=== PATIENT | female | born 1950 | race Caucasian/White ===

== ENCOUNTER → 2018-12-01 | Day surgery (SDC) | payer MEDICARE ==
[2018-11-29 15:16] LABS: BASOPHILS # (AUTO) 0.1 (0.0-0.1); BASOPHILS % 1.5 % (0.0-1.0); EOSINOPHILS # (AUTO) 0.2 (0.0-0.4); EOSINOPHILS % 3.1 % (0.0-6.0); HEMOGLOBIN 14.4 g/dL (12.0-16.0); LYMPHOCYTES # (AUTO) 2.3 (1.0-3.2); LYMPHOCYTES % 33.2 % (18.0-39.1); MEAN CORPUSCULAR HEMOGLOBIN 29.2 pg (28-32); MEAN CORPUSCULAR HGB CONC 32.7 g/dL (31-35); MEAN CORPUSCULAR VOLUME 89.2 fL (81-99); MONOCYTES # (AUTO) 0.6 (0.2-0.8); MONOCYTES % 8.6 % (4.4-11.3); NEUTROPHILS # (AUTO) 3.6 (2.1-6.9); NEUTROPHILS % 53.5 % (38.7-80.0); PLATELET COUNT 276 x10e3/uL (140-360); RED BLOOD COUNT 4.93 x10e6/uL (3.6-5.1); RED CELL DISTRIBUTION WIDTH 13.3 % (11.7-14.4)
[~2018-12-01] MED LIST: CINNAMON500 MG PO; CO Q-10100 MG PO; FENTANYL CITRATE/PF 100MCG/2 ML INJ ONE; LEVOTHYROXINE50 MCG PO; MIDAZOLAM HCL 2 MG/2 ML VIAL ONE; MUCINEX PO; MULTI-VITAMIN1 EACH PO; OMEPRAZOLE40 MG PO; PROPOFOL IV EMULSION 10 MG/ML 20 ML VIAL ONE; SIMVASTATIN40 MG PO; SUPER B-50 COM1 EACH PO; VENLAFAXINE HCL75 MG PO; VIT A PO; VIT D PO
--- OUTSIDE RECORDS SUMMARY | 2018-12-01 05:31 | XMS REPORT | Clinical Summary ---
Author Author [facility] Organization [facility] Address Unknown Phone Unavailable Care Team Providers Care Link Trainer Maintenance Man Name Role Phone PCP Unavailable Allergies Not on File Current Medications Not on file Active Problems Problem Noted Date Impaired mobility and ADLs 05/06/2018 Status post total replacement of right hip 05/06/2018 H/O total hip arthroplasty, left 05/06/2018 Encounters Date Type Specialty Care Team Description 08/16/2018 Therapy Physical Therapy Atilio Weston PT Impaired mobility and ADLs; Status post total replacement of right hip; H/O total hip arthroplasty, left 08/04/2018 Therapy Physical Therapy Rafael Talbot, PT Impaired mobility and ADLs; Status post total replacement of right hip; H/O total hip arthroplasty, left 07/21/2018 Therapy Physical Therapy Rafael Talbot, PT Impaired mobility and ADLs; Status post total replacement of right hip; H/O total hip arthroplasty, left 07/14/2018 Therapy Physical Therapy Atilio Weston PT Impaired mobility and ADLs; Status post total replacement of right hip; H/O total hip arthroplasty, left 07/06/2018 Therapy Physical Therapy Rafael Talbot, PT Impaired mobility and ADLs; Status post total replacement of right hip; H/O total hip arthroplasty, left 07/02/2018 Therapy Physical Therapy Atilio Weston PT Impaired mobility and ADLs; Status post total replacement of right hip; H/O total hip arthroplasty, left 06/29/2018 Therapy Physical Therapy Atilio Weston, PT Impaired mobility and ADLs; Status post total replacement of right hip; H/O total hip arthroplasty, left 06/24/2018 Therapy Physical Therapy Rafael Talbot, PT Impaired mobility and ADLs; Status post total replacement of right hip; H/O total hip arthroplasty, left 06/21/2018 Therapy Physical Therapy Rafael Talbot, PT Impaired mobility and ADLs; Status post total replacement of right hip; H/O total hip arthroplasty, left 06/18/2018 Therapy Physical Therapy Atilio Weston, PT Impaired mobility and ADLs; Status post total replacement of right hip; H/O total hip arthroplasty, left 06/15/2018 Therapy Physical Therapy Atilio Weston, PT Impaired mobility and ADLs; Status post total replacement of right hip; H/O total hip arthroplasty, left 06/11/2018 Therapy Physical Therapy Rafael Talbot, PT Impaired mobility and ADLs; Status post total replacement of right hip; H/O total hip arthroplasty, left 06/04/2018 Therapy Physical Therapy Atilio Weston, PT Impaired mobility and ADLs; Status post total replacement of right hip; H/O total hip arthroplasty, left 06/01/2018 Therapy Physical Therapy Atilio Weston, PT Impaired mobility and ADLs; Status post total replacement of right hip; H/O total hip arthroplasty, left 05/27/2018 Therapy Physical Therapy Rafael Talbot, PT Impaired mobility and ADLs; Status post total replacement of right hip; H/O total hip arthroplasty, left 05/25/2018 Therapy Physical Therapy Rafael Talbot, PT Impaired mobility and ADLs; Status post total replacement of right hip; H/O total hip arthroplasty, left 05/20/2018 Therapy Physical Therapy Atilio Weston, PT Impaired mobility and ADLs (Primary Dx); Status post total replacement of right hip; H/O total hip arthroplasty, left 05/18/2018 Therapy Physical Therapy Atilio Weston, PT Impaired mobility and ADLs; Status post total replacement of right hip; H/O total hip arthroplasty, left 05/14/2018 Therapy Physical Therapy Rafael Talbot, PT Impaired mobility and ADLs; Status post total replacement of right hip; H/O total hip arthroplasty, left 05/10/2018 Therapy Physical Therapy Rfaael Talbot, PT Impaired mobility and ADLs; Status post total replacement of right hip; H/O total hip arthroplasty, left 05/06/2018 Therapy Physical Therapy Vik Israel, PT Status post total replacement of right hip (Primary Dx); Impaired mobility and ADLs; H/O total hip arthroplasty, left after 09/19/2017 Social History Tobacco Use Types Packs/Day Years Used Date Never Assessed Sex Assigned at Date Recorded Not on file Last Filed Vital Signs Not on file Plan of Treatment Health Maintenance Due Date Last Done Comments Breast Cancer Scrn 1991 (Yearly) Colorectal Cancer Scrn 2001 Annual (FIT/FOBT) Age 50 to 75 IMM Pneumococcal Age 65 2016 and Up IMM Influenza Seasonal 08/02/2018Aug to December (>/=19 yrs) Results Not on fileafter 09/19/2017
--- OUTSIDE RECORDS SUMMARY | 2018-12-01 05:31 | XMS REPORT | Clinical Summary ---
Author Author [facility] Organization [facility] Address Unknown Phone Unavailable Care Team Providers Care Braider Operator Name Role Phone PCP Unavailable Allergies Not on File Current Medications Not on file Active Problems Problem Noted Date Impaired mobility and ADLs 05/06/2018 Status post total replacement of right hip 05/06/2018 H/O total hip arthroplasty, left 05/06/2018 Encounters Date Type Specialty Care Team Description 08/04/2018 Therapy Physical Therapy Rafael Talbot, PT Impaired mobility and ADLs; Status post total replacement of right hip; H/O total hip arthroplasty, left 07/21/2018 Therapy Physical Therapy Rafael Talbot, PT Impaired mobility and ADLs; Status post total replacement of right hip; H/O total hip arthroplasty, left 07/14/2018 Therapy Physical Therapy Atilio Weston, PT Impaired mobility and ADLs; Status post total replacement of right hip; H/O total hip arthroplasty, left 07/06/2018 Therapy Physical Therapy Rafael Talbot PT Impaired mobility and ADLs; Status post total replacement of right hip; H/O total hip arthroplasty, left 07/02/2018 Therapy Physical Therapy Atilio Weston PT Impaired mobility and ADLs; Status post total replacement of right hip; H/O total hip arthroplasty, left 06/29/2018 Therapy Physical Therapy Atilio Weston PT Impaired [...] hip arthroplasty, left 05/10/2018 Therapy Physical Therapy Rafael Talbot, PT Impaired mobility and ADLs; Status post total replacement of right hip; H/O total hip arthroplasty, left 05/06/2018 Therapy Physical Therapy Vik Israel, PT Status post total replacement of right hip (Primary Dx); Impaired mobility and ADLs; H/O total hip arthroplasty, left after 08/09/2017 Social History Tobacco Use Types Packs/Day Years Used Date Never Assessed Sex Assigned at Date Recorded Not on file Last Filed Vital Signs Not on file Plan of Treatment Date Type Specialty Care Team Description 08/13/2018 Therapy Physical Therapy Atilio Weston, PT Health Maintenance Due Date Last Done Comments Breast Cancer Scrn 1991 (Yearly) Colorectal Cancer Scrn 2001 Annual (FIT/FOBT) Age 50 to 75 IMM Pneumococcal Age 66 2016 and Up IMM Influenza Seasonal 08/02/2018Aug to December (>/=19 yrs) Results Not on fileafter 08/09/2017
--- OUTSIDE RECORDS SUMMARY | 2018-12-01 05:31 | XMS REPORT | Continuity of Care Document ---
Author Author [facility] Address Unknown Phone Unavailable Problems Problem Status Onset Date Classification Date Reported Comments Source Impaired mobility and ADLs Active 05/06/2018 Problem 09/20/2018 [facility] Status post total replacement of right hip Active 05/06/2018 Problem 09/20/2018 [facility] H/O total hip arthroplasty, left Active 05/06/2018 Problem 09/20/2018 [facility] 272.0/780.79 Active [facility] Medications Medication Details Route Status Patient Instructions Ordering Provider Order Date Source Allergies, Adverse Reactions, Alerts Substance Category Reaction Severity Reaction type Status Date Reported Comments Source Immunizations Immunization Date Given Site Status Last Updated Comments Source Results Order Name Results Value Reference Range Date Interpretation Comments Source Vital Signs Vital Sign Value Date Comments Source Encounters Location Location Details Encounter Type Encounter Number Reason For Visit Attending Provider ADM Date DC Date Status Source [facility] Outpatient [id number] 272.0/780.79 [facility] 11/10/2011 11/10/2011 Active [facility] Physical Therapy [facility] [id number] Impaired mobility and ADLs 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, left Ke Medrano PT 05/06/2018 05/06/2018 [facility] Physical Therapy [facility] [id number] Impaired mobility and ADLs 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, left Rafael Talbot PT 05/10/2018 05/10/2018 [facility] Physical Therapy [facility] [id number] Impaired mobility and ADLs 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, left Rafael Talbot PT 05/14/2018 05/14/2018 [facility] Physical Therapy [facility] [id number] Impaired mobility and ADLs 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, left Atilio Weston PT 05/18/2018 05/18/2018 [facility] Physical Therapy [facility] [id number] Impaired mobility and ADLs 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, left Atilio Weston PT 05/20/2018 05/20/2018 [facility] [id number] Impaired mobility and ADLs 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, left Rafael Talbot PT 05/25/2018 05/25/2018 [facility] Physical Therapy [facility] Therapy [id number] Impaired mobility and ADLs 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, left Rafael Talbot PT 05/27/2018 05/27/2018 [facility] [id number] Impaired mobility and ADLs 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, left Atilio Weston PT 06/01/2018 06/01/2018 [facility] Physical Therapy [facility] Therapy [id number] Impaired mobility and ADLs 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, left Atilio Weston PT 06/04/2018 06/04/2018 [facility] Physical Therapy [facility] Therapy [id number] Impaired mobility and ADLs 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, left Rafael Talbot PT 06/11/2018 06/11/2018 [facility] Physical Therapy [facility] Therapy [id number] Impaired mobility and ADLs 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, left Atilio Weston PT 06/15/2018 06/15/2018 [facility] [id number] Impaired mobility and ADLs 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, left Atilio Weston PT 06/18/2018 06/18/2018 [facility] Physical Therapy [facility] Therapy [id number] Impaired mobility and ADLs 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, left Rafael Talbot PT 06/21/2018 06/21/2018 [facility] [id number] Impaired mobility and ADLs 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, left Rafael Talbot PT 06/24/2018 06/24/2018 [facility] [id number] Impaired mobility and ADLs 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, left Atilio Weston PT 06/29/2018 06/29/2018 [facility] [id number] Impaired mobility and ADLs 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, left Atilio Weston PT 07/02/2018 07/02/2018 [facility] Physical Therapy [facility] Therapy [id number] Impaired mobility and ADLs 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, left Rafael Garciavins PT 07/06/2018 07/06/2018 [facility] Physical Therapy [facility] Therapy [id number] Impaired mobility and ADLs 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, left Atilio Weston PT 07/14/2018 07/14/2018 [facility] Physical Therapy [facility] Therapy [id number] Impaired mobility and ADLs 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
--- OUTSIDE RECORDS SUMMARY | 2018-12-01 05:31 | XMS REPORT ---
Author Author [facility] Address Unknown Phone Unavailable Care Team Providers Care Plant Clerk Name Role Phone Unavailable Unavailable Problems This patient has no known problems. Allergies, Adverse Reactions, Alerts This patient has no known allergies or adverse reactions. Medications This patient has no known medications. Encounters Start Date/Time End Date/Time Encounter Type Admission Type Attending [facility] Facility Care Department Encounter ID 2018-08-16 07:39:28 2018-08-16 07:39:28 Outpatient [facility] [id number] 2018-08-13 00:00:00 2018-08-13 00:00:00 Outpatient [facility] [id number] 2018-08-04 08:46:57 2018-08-04 08:46:57 Outpatient [facility] [id number] 2018-07-28 00:00:00 2018-07-28 00:00:00 Outpatient [facility] [id number] 2018-07-28 00:00:00 2018-07-28 00:00:00 Outpatient [facility] [id number] 2018-07-21 08:32:58 2018-07-21 08:32:58 Outpatient [facility] [id number] 2018-07-16 00:00:00 2018-07-16 00:00:00 Outpatient [facility] [id number] 2018-07-14 07:58:30 2018-07-14 07:58:30 Outpatient [facility] [id number] 2018-07-06 09:02:39 2018-07-06 09:02:39 Outpatient [facility] [id number] 2018-07-02 07:29:00 2018-07-02 07:29:00 Outpatient [facility] [id number] 2018-06-29 07:26:40 2018-06-29 07:26:40 Outpatient [facility] [id number] 2018-06-24 06:55:56 2018-06-24 06:55:56 Outpatient [facility] [id number] 2018-06-21 10:54:33 2018-06-21 10:54:33 Outpatient [facility] [id number] 2018-06-18 07:34:18 2018-06-18 07:34:18 Outpatient [facility] [id number] 2018-06-15 07:28:35 2018-06-15 07:28:35 Outpatient [facility] [id number] 2018-06-11 07:01:06 2018-06-11 07:01:06 Outpatient [facility] [id number] 2018-06-04 07:34:29 2018-06-04 07:34:29 Outpatient [facility] [id number] 2018-06-03 00:00:00 2018-06-03 00:00:00 Outpatient [facility] [id number] 2018-06-01 07:11:03 2018-06-01 07:11:03 Outpatient [facility] [id number] 2018-05-27 07:29:58 2018-05-27 07:29:58 Outpatient [facility] [id number] 2018-05-25 07:13:17 2018-05-25 07:13:17 Outpatient [facility] [id number] 2018-05-20 07:15:09 2018-05-20 07:15:09 Outpatient [facility] [id number] 2018-05-18 07:25:27 2018-05-18 07:25:27 Outpatient [facility] [id number] 2018-05-14 07:13:06 2018-05-14 07:13:06 Outpatient [facility] [id number] 2018-05-10 06:57:56 2018-05-10 06:57:56 Outpatient [facility] [id number] 2018-05-06 07:18:05 2018-05-06 07:18:05 Outpatient [facility] [id number]
--- OUTSIDE RECORDS SUMMARY | 2018-12-01 05:31 | XMS REPORT | Clinical Summary ---
Author Author [facility] Organization [facility] Address Unknown Phone Unavailable Care Team Providers Care Railroad Operating Engineer Name Role Phone PCP Unavailable Allergies Not on File Current Medications Not on file Active Problems Problem Noted Date Impaired mobility and ADLs 05/06/2018 Status post total replacement of right hip 05/06/2018 H/O total hip arthroplasty, left 05/06/2018 Encounters Date Type Specialty Care Team Description 08/04/2018 Therapy Physical Therapy Rafael Talbot, PT Arrived 07/21/2018 Therapy Physical Therapy Rafael Talbot, PT [...] ADLs; H/O total hip arthroplasty, left after 08/03/2017 Social History Tobacco Use Types Packs/Day Years [...] December (>/=19 yrs) Results Not on fileafter 08/03/2017
--- OUTSIDE RECORDS SUMMARY | 2018-12-01 05:31 | XMS REPORT | Clinical Summary ---
Author Author [facility] Organization [facility] Address Unknown Phone Unavailable Care Team Providers Care Financial Aids Officer Name Role Phone PCP Unavailable Allergies Not on File Current Medications Not on file Active Problems Problem Noted Date Impaired mobility and ADLs 05/06/2018 Status post total replacement of right hip 05/06/2018 H/O total hip arthroplasty, left 05/06/2018 Encounters Date Type Specialty Care Team Description 07/21/2018 Therapy Physical Therapy Rafael Talbot, PT Arrived 07/14/2018 Therapy Physical Therapy Atilio Weston, PT [...] arthroplasty, left 06/24/2018 Therapy Physical Therapy Rafael Talbot PT Impaired mobility and ADLs; Status post total replacement of right hip; H/O total hip arthroplasty, left 06/21/2018 Therapy Physical Therapy Rafael Talbot, PT Impaired mobility and ADLs; Status post total replacement of right hip; H/O total hip arthroplasty, left 06/18/2018 Therapy Physical Therapy Atilio Weston PT Impaired [...] ADLs; H/O total hip arthroplasty, left after 07/20/2017 Social History Tobacco Use Types Packs/Day Years Used Date Never Assessed Sex Assigned at Date Recorded Not on file Last Filed Vital Signs Not on file Plan of Treatment Date Type Specialty Care Team Description 07/28/2018 Therapy Physical Therapy Atilio Weston, PT 08/04/2018 Therapy Physical Therapy Rafael Talbot, PT Health Maintenance Due Date Last Done Comments Breast Cancer Scrn 1991 (Yearly) Colorectal Cancer Scrn 2001 Annual (FIT/FOBT) Age 50 to 75 IMM Pneumococcal Age 66 2016 and Up IMM Influenza Seasonal 08/02/2018Aug to December (>/=19 yrs) Results Not on fileafter 07/20/2017
--- OUTSIDE RECORDS SUMMARY | 2018-12-01 05:31 | XMS REPORT | Clinical Summary ---
Author Author [facility] Organization [facility] Address Unknown Phone Unavailable Care Team Providers Care Child Care Development Specialist Name Role Phone PCP Unavailable Allergies Not on File Medications Not on file Active Problems Problem Noted Date Impaired mobility and ADLs 05/06/2018 Status post total replacement of right hip 05/06/2018 H/O total hip arthroplasty, left 05/06/2018 Encounters Care Team Description Date Type Specialty Atilio Weston, PT Impaired mobility and ADLs; Status post total replacement of right hip; H/O total hip arthroplasty, left 08/16/2018 Therapy Physical Therapy Rafael Talbot, PT Impaired mobility and ADLs; Status post total replacement of right hip; H/O total hip arthroplasty, left 08/04/2018 Therapy Physical Therapy Rafael Talbot, PT Impaired mobility and ADLs; Status post total replacement of right hip; H/O total hip arthroplasty, left 07/21/2018 Therapy Physical Therapy Atilio Weston, PT Impaired mobility and ADLs; Status post total replacement of right hip; H/O total hip arthroplasty, left 07/14/2018 Therapy Physical Therapy Rafael Talbot, PT Impaired mobility and ADLs; Status post total replacement of right hip; H/O total hip arthroplasty, left 07/06/2018 Therapy Physical Therapy Atilio Weston PT Impaired mobility and ADLs; Status post total replacement of right hip; H/O total hip arthroplasty, left 07/02/2018 Therapy Physical Therapy Atilio Weston, PT Impaired mobility and ADLs; Status post total replacement of right hip; H/O total hip arthroplasty, left 06/29/2018 Therapy Physical Therapy Rafael Talbot, PT Impaired mobility and ADLs; Status post total replacement of right hip; H/O total hip arthroplasty, left 06/24/2018 Therapy Physical Therapy Rafael Talbot, PT Impaired mobility and ADLs; Status post total replacement of right hip; H/O total hip arthroplasty, left 06/21/2018 Therapy Physical Therapy Atilio Weston, PT Impaired mobility and ADLs; Status post total replacement of right hip; H/O total hip arthroplasty, left 06/18/2018 Therapy Physical Therapy Atilio Weston, PT Impaired mobility and ADLs; Status post total replacement of right hip; H/O total hip arthroplasty, left 06/15/2018 Therapy Physical Therapy Rafael Talbot, PT Impaired mobility and ADLs; Status post total replacement of right hip; H/O total hip arthroplasty, left 06/11/2018 Therapy Physical Therapy Atilio Weston, PT Impaired mobility and ADLs; Status post total replacement of right hip; H/O total hip arthroplasty, left 06/04/2018 Therapy Physical Therapy Atilio Weston, PT Impaired mobility and ADLs; Status post total replacement of right hip; H/O total hip arthroplasty, left 06/01/2018 Therapy Physical Therapy Rafael Talbot, PT Impaired mobility and ADLs; Status post total replacement of right hip; H/O total hip arthroplasty, left 05/27/2018 Therapy Physical Therapy Rafael Talbot, PT Impaired mobility and ADLs; Status post total replacement of right hip; H/O total hip arthroplasty, left 05/25/2018 Therapy Physical Therapy Atilio eWston, PT Impaired mobility and ADLs (Primary Dx); Status post total replacement of right hip; H/O total hip arthroplasty, left 05/20/2018 Therapy Physical Therapy Atilio Weston, PT Impaired mobility and ADLs; Status post total replacement of right hip; H/O total hip arthroplasty, left 05/18/2018 Therapy Physical Therapy Rafael Talbot, PT Impaired mobility and ADLs; Status post total replacement of right hip; H/O total hip arthroplasty, left 05/14/2018 Therapy Physical Therapy Rafael Talbot, PT Impaired mobility and ADLs; Status post total replacement of right hip; H/O total hip arthroplasty, left 05/10/2018 Therapy Physical Therapy Vik Israel, PT Status post total replacement of right hip (Primary Dx); Impaired mobility and ADLs; H/O total hip arthroplasty, left 05/06/2018 Therapy Physical Therapy after 11/30/2017 Social History Date Tobacco Use Types Packs/Day Years Used Never Assessed Sex Assigned at Date Recorded Not on file Industry Job Start Date Occupation Not on file Not on file Not on file Travel End Travel History Travel Start No recent travel history available. Last Filed Vital Signs Not on file Plan of Treatment Health Maintenance Due Date Last Done Comments Breast Cancer Scrn 1991 (Yearly) Colorectal Cancer Scrn 2001 Annual (FIT/FOBT) Age 50 to 75 IMM Pneumococcal Age 66 2016 and Up IMM Influenza Seasonal 08/02/2018Aug to December (>/=19 yrs) Results Not on fileafter 11/30/2017 Insurance Type Payer Benefit Subscriber ID Effective Phone Address Plan / Dates Group MEDICARE MEDICARE xxxxxxxxxx 2017-P [id number] [place] [address] AETNA AETNA xxxxxxxxxx 2015-P [phone] [id number] [place] [address]
--- OUTSIDE RECORDS SUMMARY | 2018-12-01 05:31 | XMS REPORT | Clinical Summary ---
Author Author [facility] Organization [facility] Address Unknown Phone Unavailable Care Team Providers Care Medical Imaging Technologist Name Role Phone PCP Unavailable Allergies Not on File Current Medications Not on file Active Problems Not on file Social History Tobacco Use Types Packs/Day Years Used Date Never Assessed Sex Assigned at Date Recorded Not on file Last Filed Vital Signs Not on file Plan of Treatment Date Type Specialty Care Team Description 05/06/2018 Therapy Physical Therapy Vik Israel, PT Health Maintenance Due Date Last Done Comments BREAST CANCER SCRN 1991 (YEARLY) COLORECTAL CANCER SCRN 2001 ANNUAL (FIT/FOBT) AGE 50 TO 75 IMM PNEUMOCOCCAL AGE 65 2016 AND UP Results Not on fileafter 05/05/2017
[2018-12-01 08:15] VITALS: BP 139/98
== END | disposition home or self-care (01) ==
LOC: OR 05:23
PROVIDERS: ATTEND Internal Medicine Gastroenterology
DX: Z12.11 Encounter for screening for malignant neoplasm of colon (principal); D12.0 Benign neoplasm of cecum; D12.3 Benign neoplasm of transverse colon; K29.70 Gastritis, unspecified, without bleeding; K21.9 Gastro-esophageal reflux disease without esophagitis; K64.8 Other hemorrhoids; Z71.3 Dietary counseling and surveillance; G47.33 Obstructive sleep apnea (adult) (pediatric); E66.01 Morbid (severe) obesity due to excess calories; Z01.810 Encounter for preprocedural cardiovascular examination; Z01.812 Encounter for preprocedural laboratory examination; Z68.41 Body mass index [BMI] 40.0-44.9, adult; Z96.649 Presence of unspecified artificial hip joint; Z80.0 Family history of malignant neoplasm of digestive organs
CPT/HCPCS: 36415; 43239; 45380; 85025; 88305; 88312; 93005; J2250; J2704